=== PATIENT | male | born 1990 | race Caucasian/White ===

== ENCOUNTER 2017-09-06 14:22 | Emergency (ER) | payer OTHER ==
[2017-09-06 15:11] VITALS: BP 115/73; PULSE 79; RESP 18; TEMP 98.8
--- NOTE | 2017-09-06 15:51 | ED ---
General Adult HPI - General Chief complaint: Animal Bite Stated complaint: Dog bite Time Seen by Provider: 09/06/17 15:13 Source: patient, RN notes reviewed Mode of arrival: ambulatory Limitations: no limitations - History of Present Illness Initial comments: 27-year-old male presents to the emergency department for a chief complaint of dog bite 2 hours. Patient states he was outside when his neighbor's dog bit him on the leg. Patient states the dog is vaccinated. Patient is up-to-date on tetanus as he is in the and had his tetanus 2 years ago. Patient was not bitten anywhere else. Patient denies fevers or chills. Patient has no other complaints at this time including shortness of breath, chest pain, abdominal pain, nausea or vomiting, headache, or visual changes. - Related Data Previous Rx's Medication Instructions Recorded Amoxicillin/Potassium Clav 1 tab PO Q12HR #20 tab 09/06/17 [Augmentin 875-125 Tablet] Allergies Allergy/AdvReac Type Severity Reaction Status Date / Time No Known Allergies Allergy Verified 09/06/17 15:35 Review of Systems ROS Statement: Those systems with pertinent positive or pertinent negative responses have been documented in the HPI. ROS Other: All systems not noted in ROS Statement are negative. Past Medical History Past Medical History: No Reported History History of Any Multi-Drug Resistant Organisms: None Reported Past Surgical History: No Surgical Hx Reported Past Psychological History: No Psychological Hx Reported Smoking Status: Never smoker Past Alcohol Use History: None Reported Past Drug Use History: None Reported General Exam Limitations: no limitations General appearance: alert, in no apparent distress Head exam: Present: atraumatic, normocephalic, normal inspection Eye exam: Present: normal appearance. Absent: scleral icterus, conjunctival injection Neck exam: Present: normal inspection, full ROM. Absent: tenderness Respiratory exam: Present: normal lung sounds bilaterally. Absent: respiratory distress, wheezes, rales, rhonchi, stridor Cardiovascular Exam: Present: regular rate, normal rhythm, normal heart sounds. Absent: systolic murmur, diastolic murmur, rubs, gallop, clicks Extremities exam: Present: full ROM (Full range of motion of the left knee and left hip), normal capillary refill (cap refill < 2 seconds.), other (There is a 4 cm superficial abrasion of the posterior left thigh. No drainage, spreading redness, or streaking redness from the wound. No puncture wounds or lacerations present. sensation intact in LLE.) Course Vital Signs 09/06/17 15:09 Temperature 98.8 F Pulse Rate 79 Respiratory 18 Rate Blood Pressure 115/73 O2 Sat by Pulse 98 Oximetry Medical Decision Making - Medical Decision Making 27-year-old male presents to the emergency determine for a chief complaint of dog bite occurring about 2 hours ago. Dog bit him in the left posterior thigh. Tetanus up-to-date. Dog fully immunized. On exam patient is a 4 cm sueprficial abrasion to the left thigh. No lacerations or puncture wounds. Wound was cleaned thoroughly with soap and water by myself. Patient has full range of motion of the left knee and hip. Neurovascular intact. Patient states his pain is at a 0 at this time. He does not want any pain medication. No signs of infection at this time. Patient was given Augmentin to prevent infection and educated on infection return precautions. He will follow up with primary care in 1-2 days for wound recheck. Patient voices understanding of this plan. Disposition Clinical Impression: Dog bite Disposition: HOME SELF-CARE Condition: Good Instructions: Animal Bite (ED), Abrasion (ED) Additional Instructions: Please take Motrin or Tylenol for pain. Please take Augmentin as directed. Please monitor for any signs of infection or worsening symptoms such as fever, drainage, spreading redness, or streaking redness. Return to the emergency Department if these or any other concerns occur. Follow-up with primary care in 1-2 days for wound recheck Prescriptions: Amoxicillin/Potassium Clav [Augmentin 875-125 Tablet] 1 tab PO Q12HR #20 tab Is patient prescribed a controlled substance at d/c from ED?: No Referrals: Kelechi Morales MD [STAFF PHYSICIAN] - 1-2 days Time of Disposition: 15:50
== END 2017-09-06 16:00 | disposition home or self-care (01) ==
LOC: EC 14:22
DX: S70.372A Other superficial bite of left thigh, initial encounter (principal); W54.0XXA Bitten by dog, initial encounter; Y92.89 Other specified places as the place of occurrence of the external cause
CPT/HCPCS: 99283